=== PATIENT | female | born 1940 | race Caucasian/White ===

== ENCOUNTER 2017-02-28 10:54 | Emergency (ER) | payer MEDICARE, OTHER ==
[2017-02-28] MEDS ORDERED: Ondansetron HCl/PF 4 MG/2 ML Vial ONE (11:49)
[2017-02-28] MEDS ORDERED: Ibuprofen 600 MG TAB ONE (11:49)
[2017-02-28 11:50] LABS: Clarity Slightly Cloudy (Clear); Leukocyte Small (Negative); Nitrite Negative (Negative); Specific Gravity, Urine 1.015 (1.005-1.030); pH, Urine 5.5 (5.0-9.0)
[2017-02-28 11:51] LABS: Bacteria/HPF 4+ HPF (None Seen); Bilirubin Negative (Negative); Blood, Urine Moderate (Negative); Glucose, Urine (Dipstick) Negative (Negative); Protein, Urine (Dipstick) 100 mg/dL (Neg-Trace); Urobilinogen 0.2 mg/dL (0.2-1.0); WBC/HPF 21-50 HPF (0-3)
[2017-02-28 12:03] LABS: ALT (SGPT) 26 U/L (8-55); AST (SGOT) 28 U/L (5-34); Albumin 3.3 g/dL (3.4-4.8); Alkaline Phosphatase 94 U/L (40-150); Anion Gap 17 mmol/L (10-20); BUN (Urea Nitrogen) 17 mg/dL (9.8-20.1); Bilirubin, Total 0.7 mg/dL (0.2-1.2); Calc. Creatinine Clearance 0 mL/min (70-130); Calcium 8.9 mg/dL (7.8-10.44); Carbon Dioxide 20 mmol/L (23-31); Chloride 97 mmol/L (98-107); Estimated GFR-MDRD 67; Globulin 4.4 g/dL (2.4-3.5); Glucose 115 mg/dL (83-110); Potassium 3.3 mmol/L (3.5-5.1); Protein, Total 7.7 g/dL (6.0-8.3); Sodium 131 mmol/L (136-145)
[2017-02-28] MEDS ORDERED: cefTRIAXone\\ROCEPHIN 1 GM VIAL ONE (12:03)
[2017-02-28 12:07] LABS: Band 25 % (5-11); Hemoglobin 12.8 g/dL (12.0-16.0); Lymphocytes 3 % (21-51); MDiff Complete? YES; Mean Corpuscular HGB CONC 33.7 g/dL (32.0-36.0); Mean Corpuscular Hemoglobin 29.6 pg (27.0-31.0); Mean Corpuscular Volume 87.6 fl (81.0-99.0); Mean Platelet Volume 7.4 fL (7.4-10.4); Monocytes 1 % (0-10); Neutrophil 71 % (42-75); PLT Morphology Comment Appears Adequate; Platelet Count 227 thou/uL (130-400); Red Blood Cell (RBC) Count 4.32 mill/uL (4.20-5.40); White Blood Cell (WBC) Count 14.8 thou/uL (4.8-10.8)
[2017-02-28] MEDS ORDERED: Potassium Chloride 20 MEQ TAB ONE (12:47)
--- NOTE | 2017-02-28 14:01 | RAD ---
TWO VIEW CHEST: COMPARISON: 10/29/15. INDICATION: Cough. FINDINGS: There is no lobar consolidation, effusion, or discrete pneumothorax. Elevation of the lateral aspect of the right hemidiaphragm. Generalized interstitial prominence of each lung is seen. IMPRESSION: No significant interval change from 10/29/15. No new consolidation. POS: [facility]
[2017-02-28] MEDS ORDERED: Sodium Chloride 0.9% 100 ML BAG ONE (16:10)
[2017-02-28] MEDS ORDERED: Sodium Chloride 0.9% 1,000 ML BAG ONE (16:10)
== END 2017-02-28 14:33 | disposition home or self-care (01) ==
LOC: MADERS 10:54
DX: N39.0 Urinary tract infection, site not specified (principal); E87.6 Hypokalemia; E86.0 Dehydration; E87.1 Hypo-osmolality and hyponatremia; I73.9 Peripheral vascular disease, unspecified; I25.10 Atherosclerotic heart disease of native coronary artery without angina pectoris; I10 Essential (primary) hypertension; E78.5 Hyperlipidemia, unspecified
CPT/HCPCS: 71020; 80053; 81003; 81015; 85025; 87040; 87077; 87086; 87149; 87186; 96361; 96365; 96375; J0696; J1956; J2405; J7050